=== PATIENT | male | born 1975 | race Caucasian/White ===

== ENCOUNTER 2018-05-03 17:24 | Inpatient (IN) | payer OTHER ==
[~2018-05-03] VITALS: Ht 177.8 cm; Wt 95.2 kg
[2018-05-03 17:51] LABS: BASOPHILS # (AUTO) 0.01 x10^3/uL (0-0.1); BASOPHILS % (AUTO) 0 % (0-1); EOSINOPHILS # (AUTO) 0.06 x10^3/uL (0-0.4); EOSINOPHILS % (AUTO) 1 % (1-7); LYMPHOCYTES # (AUTO) 0.84 x10^3/uL (1-3.4); LYMPHOCYTES % (AUTO) 8 % (22-44); MD NO; MEAN CORPUSCULAR HEMOGLOBIN 31.4 pg (27.5-34.5); MEAN CORPUSCULAR HGB CONC 34.5 g/dL (33.2-36.2); MEAN CORPUSCULAR VOLUME 90.9 fL (81-97); MONOCYTES % (AUTO) 7 % (2-9); NEUTROPHILS # (AUTO) 8.34 x10^3/uL (1.8-6.8); NEUTROPHILS % (AUTO) 84 % (42-75); PLATELET COUNT 219 x10^3/uL (130-400); RED BLOOD COUNT 5.01 x10^6/uL (4.38-5.82); RED CELL DISTRIBUTION WIDTH 13.4 % (9.4-14.8)
[2018-05-03 18:05] LABS: ALANINE AMINOTRANSFERASE 93 U/L (12-78); ALBUMIN 3.5 g/dL (3.4-5.0); ANION GAP 9 mmol/L (5-15); CALCIUM 8.8 mg/dL (8.5-10.1); CHLORIDE 106 mmol/L (98-107)
[2018-05-03 18:08] LABS: ALKALINE PHOSPHATASE 112 U/L (45-117); CREATININE 1.32 mg/dL (0.7-1.3); TOTAL PROTEIN 8.1 g/dL (6.4-8.2)
[2018-05-03 18:28] LABS: MICROSCOPIC AUTO
[2018-05-03] MEDS ORDERED: ONDANSETRON 2MG/ML, 2ML IVPush ONE (18:30)
[2018-05-03] MEDS ORDERED: ACETAMINOPHEN 500 MG TABLET PO ONE (18:30)
[2018-05-03] MEDS ORDERED: SODIUM CHLORIDE 0.9% 1,000ML IVBOLUS ONE (18:30)
[2018-05-03 18:36] LABS: CULTURE INDICATED? NO
[2018-05-03] MEDS ORDERED: HYDROmorphone 2 MG/ML, 1ML ONE ×2 (18:42→20:18)
[2018-05-03] MEDS ORDERED: ONDANSETRON 2MG/ML, 2ML ONE (18:42)
[2018-05-03] MEDS ORDERED: ACETAMINOPHEN 500 MG TABLET ONE (18:43)
[2018-05-03] MEDS: HYDROmorphone 2 MG/ML, 1ML IVPush PRN ×2 (18:52→20:32)
[2018-05-03] MEDS ORDERED: LIDOCAINE-MPF 1%, 2ML ONE ×2 (19:47→19:52)
[2018-05-03] MEDS ORDERED: IBUPROFEN 200 MG TABLET ONE (20:23)
[2018-05-03] MEDS ORDERED: IBUPROFEN 200 MG TABLET PO ONE (20:30)
[2018-05-03 20:43] LABS: HCT (SEDRATE) 45.6 % (39.2-51.8)
[2018-05-03] MEDS ORDERED: POLYETHYLENE GLYCOL 17 GM PACKET PO PRN (21:00)
[2018-05-03] MEDS ORDERED: BISACODYL 10 MG SUPP PR PRN (21:00)
[2018-05-03 21:09] LABS: GLUCOSE, CSF 57 mg/dL (40-80); TOTAL PROTEIN,CSF 38 mg/dL (15-45)
[2018-05-03 21:45] VITALS: BP 106/67
[2018-05-03] MEDS: SODIUM CHLORIDE 0.9% 1,000 ML IV SCH (21:52)
[2018-05-03] MEDS: KETOROLAC 30 MG/1 ML IVPush PRN (22:29)
[2018-05-03] MEDS ORDERED: CEFTRIAXONE 1,000 MG in SODIUM CHLORIDE 0.9% 50 ML IV SCH (23:00)
[2018-05-03] MEDS ORDERED: SUMATRIPTAN 50 MG TABLET PO ONE (23:30)
[2018-05-04] MEDS: AZITHROMYCIN 500 MG in SODIUM CHLORIDE 0.9% 250 ML IV SCH (00:51)
[2018-05-04] MEDS: ACYCLOVIR 900 MG in SODIUM CHLORIDE 0.9% 250 ML IV SCH ×3 (02:15→21:10)
[2018-05-04] MEDS: HEPARIN 5,000 UNITS/ML, 1ML SQ SCH ×3 (02:15→19:30)
[2018-05-04 02:20] VITALS: BP 115/71
[2018-05-04 05:32] LABS: BASOPHILS # (AUTO) 0.02 x10^3/uL (0-0.1); BASOPHILS % (AUTO) 0 % (0-1); EOSINOPHILS # (AUTO) 0.03 x10^3/uL (0-0.4); EOSINOPHILS % (AUTO) 0 % (1-7); LYMPHOCYTES # (AUTO) 1.06 x10^3/uL (1-3.4); LYMPHOCYTES % (AUTO) 10 % (22-44); MD NO; MEAN CORPUSCULAR HEMOGLOBIN 31.5 pg (27.5-34.5); MEAN CORPUSCULAR HGB CONC 34.4 g/dL (33.2-36.2); MEAN CORPUSCULAR VOLUME 91.4 fL (81-97); MEAN PLATELET VOLUME 8.3 fL (7.4-10.4); MONOCYTES % (AUTO) 10 % (2-9); NEUTROPHILS # (AUTO) 8.38 x10^3/uL (1.8-6.8); NEUTROPHILS % (AUTO) 80 % (42-75); PLATELET COUNT 190 x10^3/uL (130-400); RED BLOOD COUNT 4.28 x10^6/uL (4.38-5.82); RED CELL DISTRIBUTION WIDTH 13.4 % (9.4-14.8)
[2018-05-04 05:41] LABS: CHLORIDE 106 mmol/L (98-107)
[2018-05-04 05:48] LABS: ANION GAP 8 mmol/L (5-15); CALCIUM 7.6 mg/dL (8.5-10.1); CREATININE 1.16 mg/dL (0.7-1.3)
[2018-05-04 05:49] LABS: ALANINE AMINOTRANSFERASE 63 U/L (12-78); ALBUMIN 2.5 g/dL (3.4-5.0); ALKALINE PHOSPHATASE 93 U/L (45-117); TOTAL PROTEIN 6.1 g/dL (6.4-8.2)
[2018-05-04 07:43] VITALS: BP 114/69
[2018-05-04] MEDS: ACETAMINOPHEN 325 MG TABLET PO PRN ×3 (07:54→21:27)
[2018-05-04] MEDS ORDERED: SUMATRIPTAN 50 MG TABLET PO ONE (08:00)
[2018-05-04] MEDS: SODIUM CHLORIDE 0.9% 1,000 ML IV SCH ×2 (09:02→19:30)
[2018-05-04] MEDS: SENNA/DOCUSATE TABLET PO SCH (09:08)
[2018-05-04] MEDS: CEFTRIAXONE 2 GM in SODIUM CHLORIDE 0.9% 50 ML IV SCH (12:12)
[2018-05-04 15:29] VITALS: BP 127/79
[2018-05-04] MEDS ORDERED: IBUPROFEN 800 MG TABLET ONE (15:59)
[2018-05-04] MEDS ORDERED: IBUPROFEN 200 MG TABLET PO PRN (16:00)
[2018-05-04] MEDS ORDERED: KETOROLAC 30 MG/1 ML IVPush PRN (17:00)
[2018-05-04] MEDS ORDERED: DIPHENHYDRAMINE 50 MG/ML, 1ML IVPush PRN (17:00)
[2018-05-04] MEDS ORDERED: VANCOMYCIN PMX 1GM/200ML 200 ML IV ONE (17:00)
[2018-05-04] MEDS ORDERED: VANCOMYCIN PER PHARMACY MC PRN (17:00)
[2018-05-04] MEDS ORDERED: PHARMACOKINETIC MONITORING MC PRN (17:30)
[2018-05-04] MEDS ORDERED: PHARMACOKINETIC CONSULTATION MC ONE (17:30)
[2018-05-04] MEDS: VANCOMYCIN 1,600 MG in SODIUM CHLORIDE 0.9% 250 ML IV SCH (18:31)
[2018-05-04 19:17] VITALS: BP 101/57
[2018-05-04] MEDS: KETOROLAC 30 MG/1 ML IVPush PRN (21:28)
[2018-05-04] MEDS: ONDANSETRON 2MG/ML, 2ML IVPush PRN (22:54)
[2018-05-04] MEDS ORDERED: MAALOX/HYOSCYAMINE/LIDOCAINE 45 ML BTL PO PRN (23:00)
[2018-05-04 23:30] LABS: ALANINE AMINOTRANSFERASE 72 U/L (12-78); ALBUMIN 2.5 g/dL (3.4-5.0); ANION GAP 6 mmol/L (5-15); CALCIUM 8.2 mg/dL (8.5-10.1); CHLORIDE 109 mmol/L (98-107); CREATININE 1.16 mg/dL (0.7-1.3)
[2018-05-04 23:32] LABS: ALKALINE PHOSPHATASE 141 U/L (45-117); BILIRUBIN,TOTAL 0.7 mg/dL (0.2-1.0); TOTAL PROTEIN 6.5 g/dL (6.4-8.2)
[2018-05-05] MEDS: ACETAMINOPHEN 325 MG TABLET PO PRN (01:36)
[2018-05-05] MEDS: AZITHROMYCIN 500 MG in SODIUM CHLORIDE 0.9% 250 ML IV SCH (01:36)
[2018-05-05 03:15] VITALS: BP 108/69
[2018-05-05] MEDS: KETOROLAC 30 MG/1 ML IVPush PRN (04:37)
[2018-05-05] MEDS: ACYCLOVIR 900 MG in SODIUM CHLORIDE 0.9% 250 ML IV SCH ×3 (04:37→21:19)
[2018-05-05] MEDS: HEPARIN 5,000 UNITS/ML, 1ML SQ SCH ×3 (04:38→21:18)
[2018-05-05 05:29] LABS: BASOPHILS # (AUTO) 0.02 x10^3/uL (0-0.1); BASOPHILS % (AUTO) 0 % (0-1); EOSINOPHILS # (AUTO) 0.02 x10^3/uL (0-0.4); EOSINOPHILS % (AUTO) 0 % (1-7); LYMPHOCYTES # (AUTO) 0.98 x10^3/uL (1-3.4); LYMPHOCYTES % (AUTO) 9 % (22-44); MD NO; MEAN CORPUSCULAR HEMOGLOBIN 30.8 pg (27.5-34.5); MEAN CORPUSCULAR HGB CONC 34.2 g/dL (33.2-36.2); MEAN PLATELET VOLUME 7.7 fL (7.4-10.4); MONOCYTES # (AUTO) 1.01 x10^3/uL (0.2-0.8); MONOCYTES % (AUTO) 9 % (2-9); NEUTROPHILS % (AUTO) 82 % (42-75); PLATELET COUNT 193 x10^3/uL (130-400); RED BLOOD COUNT 3.84 x10^6/uL (4.38-5.82); RED CELL DISTRIBUTION WIDTH 13.6 % (9.4-14.8)
[2018-05-05] MEDS: ONDANSETRON 2MG/ML, 2ML IVPush PRN ×3 (05:49→21:18)
[2018-05-05] MEDS: VANCOMYCIN 1,600 MG in SODIUM CHLORIDE 0.9% 250 ML IV SCH ×2 (05:49→17:37)
[2018-05-05 05:51] LABS: CREATININE 1.14 mg/dL (0.7-1.3)
[2018-05-05] MEDS: SODIUM CHLORIDE 0.9% 1,000 ML IV SCH ×2 (08:00→16:00)
[2018-05-05 08:03] VITALS: BP 123/71
[2018-05-05] MEDS: SENNA/DOCUSATE TABLET PO SCH (10:10)
[2018-05-05] MEDS: CEFTRIAXONE 2 GM in SODIUM CHLORIDE 0.9% 50 ML IV SCH (12:14)
[2018-05-05] MEDS ORDERED: IBUPROFEN 800 MG TABLET ONE (12:54)
[2018-05-05] MEDS: IBUPROFEN 200 MG TABLET PO PRN ×2 (13:03→21:59)
[2018-05-05] MEDS: OXYcodone/APAP 5/325MG TABLET PO PRN ×2 (13:57→21:18)
[2018-05-05 15:14] VITALS: BP 117/68
[2018-05-05 21:23] VITALS: BP 127/79
[2018-05-06] MEDS: AZITHROMYCIN 500 MG in SODIUM CHLORIDE 0.9% 250 ML IV SCH (01:10)
[2018-05-06 01:30] VITALS: BP 107/68
[2018-05-06] MEDS: OXYcodone/APAP 5/325MG TABLET PO PRN ×4 (04:47→20:32)
[2018-05-06] MEDS: HEPARIN 5,000 UNITS/ML, 1ML SQ SCH ×3 (04:50→21:00)
[2018-05-06] MEDS: SODIUM CHLORIDE 0.9% 1,000 ML IV SCH ×3 (05:02→22:58)
[2018-05-06] MEDS: ACYCLOVIR 900 MG in SODIUM CHLORIDE 0.9% 250 ML IV SCH ×2 (05:02→14:08)
[2018-05-06] MEDS: IBUPROFEN 200 MG TABLET PO PRN (05:02)
[2018-05-06 05:45] LABS: BASOPHILS # (AUTO) 0.03 x10^3/uL (0-0.1); BASOPHILS % (AUTO) 0 % (0-1); EOSINOPHILS # (AUTO) 0.13 x10^3/uL (0-0.4); EOSINOPHILS % (AUTO) 1 % (1-7); LYMPHOCYTES # (AUTO) 1.08 x10^3/uL (1-3.4); LYMPHOCYTES % (AUTO) 11 % (22-44); MD NO; MEAN CORPUSCULAR HEMOGLOBIN 31.4 pg (27.5-34.5); MEAN CORPUSCULAR HGB CONC 34.5 g/dL (33.2-36.2); MEAN CORPUSCULAR VOLUME 91.1 fL (81-97); MEAN PLATELET VOLUME 7.8 fL (7.4-10.4); MONOCYTES # (AUTO) 0.86 x10^3/uL (0.2-0.8); MONOCYTES % (AUTO) 9 % (2-9); NEUTROPHILS # (AUTO) 7.84 x10^3/uL (1.8-6.8); NEUTROPHILS % (AUTO) 79 % (42-75); PLATELET COUNT 220 x10^3/uL (130-400); RED BLOOD COUNT 4.12 x10^6/uL (4.38-5.82); RED CELL DISTRIBUTION WIDTH 13.3 % (9.4-14.8)
[2018-05-06 05:50] LABS: CHLORIDE 108 mmol/L (98-107)
[2018-05-06 06:11] LABS: ALANINE AMINOTRANSFERASE 53 U/L (12-78); ALBUMIN 2.2 g/dL (3.4-5.0); ALKALINE PHOSPHATASE 147 U/L (45-117); ANION GAP 7 mmol/L (5-15); BILIRUBIN,TOTAL 0.9 mg/dL (0.2-1.0); CALCIUM 8.2 mg/dL (8.5-10.1); CREATININE 1.31 mg/dL (0.7-1.3); TOTAL PROTEIN 5.9 g/dL (6.4-8.2)
[2018-05-06] MEDS: VANCOMYCIN 1,600 MG in SODIUM CHLORIDE 0.9% 250 ML IV SCH (07:30)
[2018-05-06 09:55] VITALS: BP 113/71
[2018-05-06] MEDS: SENNA/DOCUSATE TABLET PO SCH (10:27)
[2018-05-06] MEDS: CEFTRIAXONE 2 GM in SODIUM CHLORIDE 0.9% 50 ML IV SCH (12:53)
[2018-05-06 14:30] VITALS: BP 131/77
[2018-05-06 16:22] LABS: MICROSCOPIC NOT IND
[2018-05-06 16:26] LABS: CULTURE INDICATED? NO
[2018-05-06 19:18] VITALS: BP 152/80
[2018-05-06] MEDS: ACETAMINOPHEN 325 MG TABLET PO PRN ×2 (19:27→21:26)
[2018-05-06] MEDS: ONDANSETRON 2MG/ML, 2ML IVPush PRN (19:50)
[2018-05-07] MEDS: OXYcodone/APAP 5/325MG TABLET PO PRN ×5 (00:22→21:12)
[2018-05-07 00:37] VITALS: BP 132/75
[2018-05-07] MEDS: SODIUM CHLORIDE 0.9% 1,000 ML IV SCH ×3 (04:23→23:48)
[2018-05-07] MEDS: HEPARIN 5,000 UNITS/ML, 1ML SQ SCH ×3 (05:00→21:00)
[2018-05-07 05:52] LABS: BASOPHILS # (AUTO) 0.02 x10^3/uL (0-0.1); BASOPHILS % (AUTO) 0 % (0-1); EOSINOPHILS # (AUTO) 0.07 x10^3/uL (0-0.4); EOSINOPHILS % (AUTO) 1 % (1-7); LYMPHOCYTES # (AUTO) 1.19 x10^3/uL (1-3.4); LYMPHOCYTES % (AUTO) 15 % (22-44); MD NO; MEAN CORPUSCULAR HEMOGLOBIN 31.3 pg (27.5-34.5); MEAN CORPUSCULAR HGB CONC 34.3 g/dL (33.2-36.2); MEAN CORPUSCULAR VOLUME 91.4 fL (81-97); MEAN PLATELET VOLUME 7.9 fL (7.4-10.4); MONOCYTES # (AUTO) 0.73 x10^3/uL (0.2-0.8); MONOCYTES % (AUTO) 9 % (2-9); NEUTROPHILS # (AUTO) 6.25 x10^3/uL (1.8-6.8); NEUTROPHILS % (AUTO) 76 % (42-75); PLATELET COUNT 281 x10^3/uL (130-400); RED BLOOD COUNT 4.06 x10^6/uL (4.38-5.82); RED CELL DISTRIBUTION WIDTH 13.5 % (9.4-14.8)
[2018-05-07 06:00] LABS: ANION GAP 8 mmol/L (5-15); CALCIUM 8.2 mg/dL (8.5-10.1); CHLORIDE 108 mmol/L (98-107)
[2018-05-07 06:02] LABS: CREATININE 1.18 mg/dL (0.7-1.3)
[2018-05-07 08:15] VITALS: BP 153/92
[2018-05-07] MEDS: SENNA/DOCUSATE TABLET PO SCH (08:53)
[2018-05-07] MEDS: ONDANSETRON 2MG/ML, 2ML IVPush PRN ×3 (08:53→21:12)
[2018-05-07] MEDS: AZITHROMYCIN 250 MG TABLET PO SCH (08:53)
[2018-05-07] MEDS: CEFTRIAXONE 2 GM in SODIUM CHLORIDE 0.9% 50 ML IV SCH (12:00)
[2018-05-07 13:10] VITALS: BP 145/87
[2018-05-07 19:15] VITALS: BP 156/89
[2018-05-07] MEDS: IBUPROFEN 200 MG TABLET PO PRN (19:22)
[2018-05-08 04:41] VITALS: BP 137/81
[2018-05-08] MEDS: IBUPROFEN 200 MG TABLET PO PRN ×2 (04:46→12:18)
[2018-05-08] MEDS: OXYcodone/APAP 5/325MG TABLET PO PRN ×3 (04:46→17:18)
[2018-05-08] MEDS: HEPARIN 5,000 UNITS/ML, 1ML SQ SCH ×2 (05:00→13:00)
[2018-05-08 07:03] VITALS: BP 144/87
[2018-05-08] MEDS: SENNA/DOCUSATE TABLET PO SCH (08:53)
[2018-05-08] MEDS: AZITHROMYCIN 250 MG TABLET PO SCH (08:54)
[2018-05-08] MEDS: SODIUM CHLORIDE 0.9% 1,000 ML IV SCH (08:55)
[2018-05-08] MEDS: CEFTRIAXONE 2 GM in SODIUM CHLORIDE 0.9% 50 ML IV SCH (12:18)
[2018-05-08 12:26] LABS: ALBUMIN 2.3 g/dL (3.4-5.0); ANION GAP 8 mmol/L (5-15); CALCIUM 8.3 mg/dL (8.5-10.1); CHLORIDE 108 mmol/L (98-107); CREATININE 1.08 mg/dL (0.7-1.3)
[2018-05-08 13:34] VITALS: BP 153/84
[2018-05-08] MEDS ORDERED: SENN1TAB7 PO (16:35)
[2018-05-08] MEDS ORDERED: CEFD300C37 PO (16:35)
[2018-05-08] MEDS ORDERED: OXYC1TAB7 PO (16:35)
[2018-05-08] MEDS ORDERED: IBUP-1484 PO (16:35)
== END 2018-05-08 18:30 | disposition home or self-care (01) | DRG 871 ==
LOC: ED 21:20 → EDIP 21:25 → 3NE 21:38
PROVIDERS: ADMIT Internal Medicine; ATTEND Internal Medicine
PROC: 009U3ZX Drainage of Spinal Canal, Percutaneous Approach, Diagnostic (ICD-10-PCS; principal; 2018-05-03)
DX: A41.9 Sepsis, unspecified organism (principal); J18.9 Pneumonia, unspecified organism; N17.0 Acute kidney failure with tubular necrosis; A87.9 Viral meningitis, unspecified; E44.0 Moderate protein-calorie malnutrition; R74.0 Nonspecific elevation of levels of transaminase and lactic acid dehydrogenase [LDH]; Z90.49 Acquired absence of other specified parts of digestive tract; Z80.3 Family history of malignant neoplasm of breast; Z68.30 Body mass index [BMI] 30.0-30.9, adult
CPT/HCPCS: 36415; 70450; 71045; 76700; 80048; 80053; 80069; 80074; 80202; 81001; 81003; 82565; 82945; 83605; 83690; 83735; 84157; 84520; 85025; 85651; 86480; 86603; 86631; 86713; 86738; 86788; 86789; 87040; 87070; 87205; 87252; 87496; 87498; 87529; 87798; 89051; 96361; 96374; 96375; 96376; 99285; J0133; J0456; J0696; J1170; J1644; J1885; J2405; J3370; J1200; J7030; J7050